=== PATIENT | male | born 1995 | race Caucasian/White ===

== ENCOUNTER 2016-12-09 01:24 | Emergency (ER) | payer OTHER ==
[2016-12-09] MEDS ORDERED: SKIN ADHESIVE (DERMABOND) 1 EACH TP ONE (01:50)
[2016-12-09 05:26] VITALS: RESP 16
--- NOTE | 2016-12-09 06:16 | EDPHY ---
H & P Stated Complaint: intoxicated, [facility] hold, fell, facial abrasions/contusions, no LOC Source: Patient, EMS - Personal History Current Tetanus/Diphtheria Vaccine: Yes Current Tetanus Diphtheria and Acellular Pertussis (TDAP): Yes - Medical/Surgical History Hx Asthma: Yes Hx Chronic Respiratory Disease: No Hx Diabetes: No Hx Cardiac Disease: No Hx Renal Disease: No Hx Cirrhosis: No Hx Alcoholism: No Hx HIV/AIDS: No Hx Splenectomy or Spleen Trauma: No Other PMH: asthma - Social History Smoking Status: Never smoked Time Seen by Provider: 12/09/16 01:42 HPI/ROS: HPI The patient presents with alcohol intoxication, currently on [facility] hold. He is a college student and was found intoxicated with facial trauma. He said he fell on the concrete while running and hit his head. He denies any loss of consciousness, headache, nausea, vomiting, vision changes. He does not want any testing he says.. REVIEW OF SYSTEMS Constitutional: No fever, no chills. Eyes: No discharge. ENT: No sore throat. Cardiovascular: No chest pain, no palpitations. Respiratory: No cough, no shortness of breath. Gastrointestinal: No abdominal pain, no vomiting. Genitourinary: No hematuria. Musculoskeletal: No back pain. Skin: No rashes. Neurological: No headache. PMHx: Healthy Soc Hx: College student, denies any drug use PHYSICAL General Appearance: Alert, no distress Eyes: Pupils equal and round no pallor or injection ENT, Mouth: Mucous membranes moist Face: Small superficial linear abrasion to his nasal bridge, frontal 2 cm hematoma abrasion to cheek Respiratory: There are no retractions, lungs are clear to auscultation Cardiovascular: Regular rate and rhythm Gastrointestinal: Abdomen is soft and non-tender, no masses, bowel sounds normal Neurological: A&O, moves all extremities Skin: Warm and dry, no rashes Musculoskeletal: Neck is supple non tender Extremities: symmetrical, full range of motion Psychiatric: Patient is oriented X 3, there is no agitation (Riguzzi,Sheela) Constitutional: Initial Vital Signs Temperature (C) 36.5 C 12/09/16 01:35 Heart Rate 119 H 12/09/16 01:35 Respiratory Rate 20 12/09/16 01:35 Blood Pressure 143/111 H 12/09/16 01:35 O2 Sat (%) 94 12/09/16 01:35 O2 Delivery Mode Room Air Allergies/Adverse Reactions: No Known Allergies Allergy (Unverified 12/09/16 01:37) Home Medications: Medication Instructions Recorded NK [No Known Home Meds] 12/09/16 Medical Decision Making ED Course/Re-evaluation: 9:00 a.m. I evaluated patient. He is arousable. He is ambulatory without instability. He is eager to go home and states that he will take it is over. He does have a swollen lip and not abrasion /hematoma to his forehead. He denies head neck back or face pain. He declines imaging. He states that he will take a uber home. (Gigi Armijo) Differential Diagnosis: This is a 21-year-old man who presents with alcohol intoxication and facial trauma. He does not appear to have any facial fractures clinically. We will monitor him closely and we will discharge him when he is sober. In the emergency room, the patient was monitored closely. Initially he was quite alert and somewhat agitated. We were able to contact family members who were able to persuade him to stay. He then fell asleep and has been sleeping soundly. He has a nonfocal neurologic exam, I doubt any closed head injury. [facility] will be [facility] to the [facility] when he is able to walk safely. At 7:00 a.m., the case was turned over to Dr. Armijo at change of shift. He is currently resting comfortably. (Sheela Berger) - Data Points Medications Given: Discontinued Medications Octyl Cyanoacrylate (Dermabond) 1 each TP EDNOW ONE Stop: 12/09/16 01:51 Last Admin: 12/09/16 06:46 Dose: Not Given Departure - Departure Disposition: Home, Routine, Self-Care Clinical Impression: Alcoholic intoxication Qualifiers: Complication of substance-induced condition: uncomplicated Qualified Code(s): F10.120 - Alcohol abuse with intoxication, uncomplicated Facial abrasion Qualifiers: Encounter type: initial encounter Qualified Code(s): S00.81XA - Abrasion of other part of head, initial encounter Condition: Good Instructions: Alcohol Intoxication (ED) Referrals: [facility] [Outside] - As per Instructions
[2016-12-09 09:22] VITALS: BP 126/87; PULSE 112; TEMP 97.9; O2SAT 92
== END 2016-12-09 09:21 | disposition home or self-care (01) ==
DX: S00.81XA Abrasion of other part of head, initial encounter (principal); F10.120 Alcohol abuse with intoxication, uncomplicated; J45.909 Unspecified asthma, uncomplicated; W01.198A Fall on same level from slipping, tripping and stumbling with subsequent striking against other object, initial encounter; Y93.02 Activity, running